=== PATIENT | male | born 1990 | race African-American/Black ===

== ENCOUNTER 2018-10-23 15:18 | Emergency (ER) | payer OTHER | END 2018-10-23 18:01 | disposition other institution (70) | LOC: ED 15:18 | DX: Z02.89 Encounter for other administrative examinations (principal) ==

== ENCOUNTER 2018-10-23 15:18 | Emergency (ER) | payer SELFPAY ==
[~2018-10-23] VITALS: Ht 177.8 cm; Wt 72.6 kg
[2018-10-23 15:21] VITALS: Ht 177.8 cm; Wt 72.6 kg
[2018-10-23 17:17] VITALS: BP 115/99
== END 2018-10-23 18:01 | disposition other institution (70) ==
LOC: ED 15:18
DX: F19.10 Other psychoactive substance abuse, uncomplicated (principal); Z13.89 Encounter for screening for other disorder
CPT/HCPCS: Q0092; Q0162